=== PATIENT | female | born 1960 | race Caucasian/White ===

== ENCOUNTER 2017-02-27 16:45 | Outpatient (CLI) | payer BC | END 2017-02-27 16:46 | disposition home or self-care (01) | LOC: BICMAMMO 16:45 | PROVIDERS: ATTEND Advanced Practice Midwife | DX: Z12.31 Encounter for screening mammogram for malignant neoplasm of breast (principal); R92.1 Mammographic calcification found on diagnostic imaging of breast; Z80.3 Family history of malignant neoplasm of breast | CPT/HCPCS: 77063; 77067 ==

== ENCOUNTER 2017-11-24 13:32 | Outpatient (CLI) | payer OTHER ==
--- NOTE | 2017-11-24 14:50 | ULT ---
LIMITED LEFT BREAST ULTRASOUND: Date: 11/24/17 PROVIDED CLINICAL HISTORY: Left breast palpable abnormalities. FINDINGS: Limited sonographic interrogation was performed of the left breast in the 12 and 2 o'clock positions in the regions of palpable concern. The sonographic appearance of the breast tissue in these regions is normal. IMPRESSION: BIRADS 1: Negative Negative imaging findings should not preclude further evaluation of a clinically suspicious area. The patient is referred back to her clinician. POS: CHRISTINA
== END 2017-11-24 13:33 | disposition home or self-care (01) ==
LOC: BICMAMMO 13:32
PROVIDERS: ATTEND Internal Medicine
DX: N63.22 Unspecified lump in the left breast, upper inner quadrant (principal); Z80.3 Family history of malignant neoplasm of breast
CPT/HCPCS: G0279

== ENCOUNTER 2018-03-16 13:03 | Outpatient (CLI) | payer OTHER | END 2018-03-16 13:04 | disposition home or self-care (01) | LOC: BICMAMMO 13:03 | PROVIDERS: ATTEND Advanced Practice Midwife | DX: Z12.31 Encounter for screening mammogram for malignant neoplasm of breast (principal); N63.10 Unspecified lump in the right breast, unspecified quadrant; Z80.3 Family history of malignant neoplasm of breast | CPT/HCPCS: 77063; 77067 ==

== ENCOUNTER 2018-03-22 14:00 | Outpatient (CLI) | payer OTHER ==
--- NOTE | 2018-03-22 15:45 | ULT ---
RIGHT BREAST ULTRASOUND: Date: 03/22/18 HISTORY: 57-year-old female with mass seen in the retroareolar region of the right breast on screening mammogr aphy. The patient was called back straight to ultrasound. TECHNIQUE: Multiplanar Moya scale and color Doppler images were obtained in a targeted ultrasound of the retroar eolar region of the right breast. FINDINGS: There are two anechoic cysts in the retroareolar regio of the right breast. The largest measures 1.7 cm in greatest dimension and corresponds to the mammographic abnormality. No solid mass or suspicious shadowing seen. IMPRESSION: BIRADS Category 2 - Benign findings. Annual screening mammography is recommended. POS: CHRISTINA
== END 2018-03-22 14:01 | disposition home or self-care (01) ==
LOC: BICULT 14:00
PROVIDERS: ATTEND Advanced Practice Midwife
DX: N63.10 Unspecified lump in the right breast, unspecified quadrant (principal)

== ENCOUNTER 2019-04-05 14:06 | Outpatient (CLI) | payer OTHER ==
--- NOTE | 2019-04-05 15:26 | MMO ---
Bilateral MAMMO Bilat Screen [facility]. CLINICAL HISTORY: Patient is 58 years old and is seen for screening. The patient has the following family history of breast cancer: mother, at age 55 and niece, at age 32. The patient has no personal history of cancer. VIEWS: The views performed were: bilateral craniocaudal with tomosynthesis and bilateral mediolateral oblique with tomosynthesis. FILMS COMPARED: The present examination has been compared to prior imaging studies performed at [facility] on 02/26/2016, 02/27/2017, 11/24/2017 and 03/16/2018. This study has been interpreted with the assistance of computer-aided detection. MAMMOGRAM FINDINGS: The breasts are heterogeneously dense, which could obscure a lesion on mammography. Benign calcifications are noted bilaterally. There are no suspicious masses, suspicious calcifications, or new areas of architectural distortion. IMPRESSION: THERE IS NO MAMMOGRAPHIC EVIDENCE OF MALIGNANCY. A ROUTINE FOLLOW-UP MAMMOGRAM IN 1 YEAR IS RECOMMENDED. THE RESULTS OF THIS EXAM WERE SENT TO THE PATIENT. ACR BI-RADS Category 2 - Benign finding MAMMOGRAPHY NOTE: 1. A negative mammogram report should not delay a biopsy if a dominant of clinically suspicious mass is present. 2. Approximately 10% to 15% of breast cancers are not detected by mammography. 3. Adenosis and dense breasts may obscure an underlying neoplasm. Reported by: MARGARITA CHAN MD Electonically Signed: [id number]
--- NOTE | 2019-04-05 15:50 | BD ---
DEXA BONE DENSITY STUDY: HISTORY: Postmenopausal. FINDINGS: Lumbar Spine: BMD (g/cm2) L1 1.007 T-Score: +0.2 L2 1.102 T-Score: +1.7 L3 1.116 T-Score: +0.3 L4 0.981 T-Score: -0.7 L1-L4 1.051 T-Score: +0.0 Femoral Neck: 0.656 T-Score: -1.7 Total Femur: 0.758 T-Score: -1.5 Impression: 1. Osteopenia of the spine and left femoral neck. 2. Ten-year fracture risk for a major osteoporotic fracture is 8.9% and of hip fracture is 0.9%. Th manuel fracture probabilities are calculated for an untreated patient. POS: [facility]
== END 2019-04-05 14:07 | disposition home or self-care (01) ==
LOC: BICMAMMO 14:06
PROVIDERS: ATTEND Advanced Practice Midwife
DX: Z12.31 Encounter for screening mammogram for malignant neoplasm of breast (principal); Z13.820 Encounter for screening for osteoporosis; M85.89 Other specified disorders of bone density and structure, multiple sites; Z80.3 Family history of malignant neoplasm of breast
CPT/HCPCS: 77063; 77067; 77080

== ENCOUNTER 2024-09-24 07:39 | Outpatient (CLI) | payer OTHER | END 2024-09-24 07:40 | disposition home or self-care (01) | LOC: BICULT 07:39 | PROVIDERS: ATTEND Internal Medicine | DX: R94.4 Abnormal results of kidney function studies (principal); N28.1 Cyst of kidney, acquired | CPT/HCPCS: 76770 ==